=== PATIENT | female | born 1985 | race Caucasian/White ===

== ENCOUNTER 2017-10-09 06:34 | Inpatient (IN) ==
[2017-10-09] MEDS: LACTATED RINGERS 1,000 ML IV SCH (07:20)
[2017-10-09] MEDS ORDERED: MEPERIDINE 50 MG/1 ML VIAL IV PRN (07:30)
[2017-10-09] MEDS ORDERED: OXYTOCIN/LR 20 UNIT/1,000 ML BAG IV SCH (07:30)
[2017-10-09] MEDS ORDERED: BUTORPHANOL 2 MG/ML VIAL IV PRN (07:30)
[2017-10-09] MEDS: ONDANSETRON 4 MG/2 ML VIAL IV PRN ×2 (07:45→18:58)
[2017-10-09] MEDS ORDERED: hydrOXYzine HCL 25 MG/1 ML VIAL IM PRN ×2 (07:51→17:24)
[2017-10-09] MEDS ORDERED: ePHEDrine 50 MG/ML AMP IV PRN (07:51)
[2017-10-09] MEDS ORDERED: CITRIC ACID/SODIUM CITRATE 30 ML UDCUP PO ONE (07:51)
[2017-10-09] MEDS ORDERED: FAMOTIDINE 20 MG/2 ML VIAL IV ONE (07:51)
[2017-10-09] MEDS ORDERED: LACTATED RINGERS 1,000 ML IV ONE (07:51)
[2017-10-09] MEDS ORDERED: PROMETHAZINE 25 MG/1 ML VIAL IM ONE (07:51)
[2017-10-09] MEDS ORDERED: diphenhydrAMINE 50 MG/1 ML VIAL IV PRN ×3 (07:51→17:29)
[2017-10-09 08:00] LABS: Basophils % 0.3 % (0.0-0.8); Eosinophils % 0.5 % (0.00-10.9); Hemoglobin 10.6 GM/DL (12.0-16.0); Immature Granulocytes % 0.5 %; Immature Granulocytes Absolute 0.04 #; Lymphocytes # 2.8 10*3/uL (1.4-4.0); Lymphocytes % 37.1 % (21.3-54.2); Mean Corpuscular HGB Conc 32.1 GM/DL (32-36); Mean Corpuscular Hemoglobin 24 PG (27-34); Mean Platelet Volume 10.8 FL (9.6-12.0); Monocytes # 0.5 10*3/uL (0.11-0.8); Monocytes % 6.2 % (1.7-12.7); Neutrophils # 4.1 10*3/uL (1.4-7.4); Neutrophils % 55.4 % (38.7-73.9); Platelet Count 240 T/CUMM (130-400); Red Blood Count 4.46 MC/CUMM (3.8-5.5); Red Cell Distribution Width 15.9 % (9.3-17.3); White Blood Count 7.4 T/CUMM (4-12)
[2017-10-09] MEDS ORDERED: fentaNYL 2 MCG/ROPIV 0.2% EPID 150 ML EPIDURAL SCH (08:00)
[2017-10-09] MEDS ORDERED: AMPICILLIN INJ 2,000 MG in SODIUM CHLORIDE 0.9% 100 ML IV ONE (08:02)
[2017-10-09 08:40] LABS: Albumin 2.9 G/DL (3.4-5.0); Bilirubin,Total 0.4 MG/DL (0.2-1.0); Osmolality,Calculated 273.5 MOS/KG (273-304); Potassium 3.7 MMOL/L (3.5-5.1); Total Protein 7.5 G/DL (6.4-8.3)
[2017-10-09 10:52] LABS: Apearance,Urine CLEAR (Clear); Bacteria,Urine Occasional /HPF (Few); Bilirubin,Urine Negative (Negative); Blood, Urine Negative (Negative); Glucose,Urine (UA) Negative (Negative); Ketones,Urine 5 mg/dL (Negative); Mucus,Urine Occasional /LPF (Occasional); Nitrite,Urine Negative (Negative); Protein,Urine Negative; RBC,Urine <1 /HPF (0-4); Squamous Epithelial Cell,Urine Occasional /HPF (0-10); Urine Color Yellow (Yellow); Urine Specific Gravity 1.008 (1.001-1.035); WBC,Urine 3 /HPF (0-6)
[2017-10-09] MEDS ORDERED: OXYTOCIN 10 UNIT/ML VIAL ONE (11:02)
[2017-10-09] MEDS ORDERED: SODIUM CHLORIDE 0.9% 1,000 ML IV PRN (11:15)
[2017-10-09] MEDS ORDERED: METHYLENE BLUE 10 ML VIAL IV ONE (11:20)
[2017-10-09] MEDS ORDERED: SODIUM CHLORIDE 0.9% 100 ML IV ONE (11:27)
[2017-10-09] MEDS ORDERED: AMPICILLIN INJ 1,000 MG in SODIUM CHLORIDE 0.9% 100 ML IV SCH (12:00)
[2017-10-09] MEDS ORDERED: fentaNYL 100 MCG/2 ML VIAL ONE (12:34)
[2017-10-09] MEDS ORDERED: MIDAZOLAM 2 MG/2 ML VIAL ONE (12:34)
[2017-10-09] MEDS ORDERED: MORPHINE 10 MG/10 ML VIAL ONE (12:34)
[2017-10-09] MEDS ORDERED: PROMETHAZINE 25 MG/1 ML VIAL ONE ×2 (12:34→22:28)
[2017-10-09] MEDS ORDERED: LIDOCAINE MPF 2% /EPI 20 ML VIAL ONE (12:35)
[2017-10-09] MEDS ORDERED: ePHEDrine 50 MG/ML AMP ONE (12:35)
[2017-10-09] MEDS ORDERED: ONDANSETRON 4 MG/2 ML VIAL ONE (12:35)
[2017-10-09 16:46] LABS: Basophils % 0.2 % (0.0-0.8); Hematocrit 25.2 VOL% (35.7-47.0); Hemoglobin 8.3 GM/DL (12.0-16.0); Immature Granulocytes % 0.3 %; Immature Granulocytes Absolute 0.03 #; Lymphocytes # 1.6 10*3/uL (1.4-4.0); Lymphocytes % 13.6 % (21.3-54.2); Mean Corpuscular HGB Conc 32.9 GM/DL (32-36); Mean Corpuscular Hemoglobin 25 PG (27-34); Mean Corpuscular Volume 74.3 FL (87-102); Mean Platelet Volume 10.3 FL (9.6-12.0); Monocytes # 0.8 10*3/uL (0.11-0.8); Monocytes % 6.7 % (1.7-12.7); Neutrophils # 9.1 10*3/uL (1.4-7.4); Neutrophils % 79.2 % (38.7-73.9); Platelet Count 185 T/CUMM (130-400); Red Blood Count 3.39 MC/CUMM (3.8-5.5); Red Cell Distribution Width 15.8 % (9.3-17.3); White Blood Count 11.4 T/CUMM (4-12)
[2017-10-09] MEDS ORDERED: MAGNESIUM HYDROXIDE SUSP 30 ML UDCUP PO PRN (16:57)
[2017-10-09] MEDS ORDERED: OXYTOCIN/LR 20 UNIT/1,000 ML BAG IV ONE (16:57)
[2017-10-09] MEDS ORDERED: RHO(D) IMMUNE GLOBULIN 300 MCG SYRINGE IM ONE (16:57)
[2017-10-09] MEDS ORDERED: ONDANSETRON 4 MG/2 ML VIAL IV PRN ×2 (17:29→22:26)
[2017-10-09] MEDS ORDERED: HYDROmorphone 2 MG/1 ML VIAL IV PRN (17:29)
[2017-10-09] MEDS ORDERED: SODIUM CHLORIDE 0.9% 1,000 ML IV SCH (17:30)
[2017-10-09] MEDS ORDERED: LACTATED RINGERS 1,000 ML IV SCH (17:30)
[2017-10-09] MEDS: ceFAZolin 1,000 MG in SYRINGE 1 EACH IV SCH (20:56)
[2017-10-09] MEDS ORDERED: PROMETHAZINE 25 MG/1 ML VIAL IM PRN (22:26)
[2017-10-09] MEDS: DOCUSATE SODIUM 100 MG CAPSULE PO SCH (23:19)
[2017-10-10] MEDS: LACTATED RINGERS 1,000 ML IV SCH ×2 (01:40→01:41)
[2017-10-10] MEDS: ceFAZolin 1,000 MG in SYRINGE 1 EACH IV SCH (04:20)
[2017-10-10 04:21] LABS: Basophils % 0.1 % (0.0-0.8); Hematocrit 25.6 VOL% (35.7-47.0); Hemoglobin 8.3 GM/DL (12.0-16.0); Immature Granulocytes % 0.5 %; Immature Granulocytes Absolute 0.06 #; Lymphocytes # 0.8 10*3/uL (1.4-4.0); Lymphocytes % 6.7 % (21.3-54.2); Mean Corpuscular HGB Conc 32.4 GM/DL (32-36); Mean Corpuscular Hemoglobin 24 PG (27-34); Mean Platelet Volume 11.4 FL (9.6-12.0); Monocytes # 0.7 10*3/uL (0.11-0.8); Monocytes % 5.7 % (1.7-12.7); Neutrophils # 10.6 10*3/uL (1.4-7.4); Platelet Count 192 T/CUMM (130-400); Red Blood Count 3.46 MC/CUMM (3.8-5.5); Red Cell Distribution Width 15.9 % (9.3-17.3); White Blood Count 12.1 T/CUMM (4-12)
[2017-10-10] MEDS: IBUPROFEN 800 MG TABLET PO SCH ×3 (06:33→22:12)
[2017-10-10] MEDS: DOCUSATE SODIUM 100 MG CAPSULE PO SCH ×2 (09:50→22:11)
[2017-10-10] MEDS: SIMETHICONE CHEW 80 MG TABLET PO PRN ×2 (09:50→21:20)
[2017-10-10] MEDS: MULTIVITAMIN (PRENATAL) TABLET PO SCH (09:50)
[2017-10-10] MEDS ORDERED: guaiFENesin 200 MG/10 ML UDCUP PO PRN (22:13)
[2017-10-11] MEDS: IBUPROFEN 800 MG TABLET PO SCH (06:30)
[2017-10-11 07:26] VITALS: BP 80/49
[2017-10-11] MEDS: DOCUSATE SODIUM 100 MG CAPSULE PO SCH (10:55)
[2017-10-11] MEDS: MULTIVITAMIN (PRENATAL) TABLET PO SCH (10:56)
== END 2017-10-11 13:05 | disposition home or self-care (01) | DRG 540 ==
LOC: N.LDOUT 06:34 → N.LD 06:38 → N.OB 16:56
PROVIDERS: ADMIT Obstetrics & Gynecology; ATTEND Obstetrics & Gynecology
PROC: LDCSECT (ICD-10-PCS; 2017-10-09 11:00)

== ENCOUNTER 2021-07-03 04:17 | Inpatient (IN) ==
[2021-07-03] MEDS ORDERED: CITRIC ACID/SODIUM CITRATE 30 ML UDCUP PO ONE (05:13)
[2021-07-03] MEDS ORDERED: FAMOTIDINE 20 MG/2 ML VIAL IV ONE (05:13)
[2021-07-03] MEDS ORDERED: ceFAZolin 3,000 MG in SYRINGE 1 EACH IV ONE (05:13)
[2021-07-03] MEDS ORDERED: OXYTOCIN/LR 20 UNIT/1,000 ML BAG IV ONE ×2 (05:15→08:10)
[2021-07-03] MEDS ORDERED: miSOPROStoL 200 MCG TABLET ONE (05:35)
[2021-07-03] MEDS ORDERED: BUPIVACAINE SPINAL 0.75% 2 ML AMP SPINAL ONE (05:35)
[2021-07-03] MEDS ORDERED: ONDANSETRON 4 MG/2 ML VIAL ONE ×2 (05:35→08:01)
[2021-07-03] MEDS ORDERED: METHYLERGONOVINE 0.2 MG/1 ML AMP ONE (05:36)
[2021-07-03] MEDS ORDERED: CARBOPROST TROMETHAMINE 250 MCG/ML AMP IM ONE (05:36)
[2021-07-03] MEDS: LACTATED RINGERS 1,000 ML IV SCH ×3 (05:37→20:00)
[2021-07-03] MEDS ORDERED: SODIUM CHLORIDE 0.9% 0 ML IV ONE (05:37)
[2021-07-03] MEDS ORDERED: TRANEXAMIC ACID 1,000 MG/10 ML VIAL ONE (05:37)
[2021-07-03] MEDS ORDERED: TISSUE ADHESIVE 1 EACH APPLICATOR TOP ONE (05:40)
[2021-07-03 05:52] LABS: Basophils % 0.3 % (0.0-0.8); Eosinophils % 0.4 % (0.00-10.9); Hematocrit 35.8 VOL% (35.7-47.0); Hemoglobin 11.5 GM/DL (12.0-16.0); Immature Granulocytes % 0.5 %; Immature Granulocytes Absolute 0.05 #; Lymphocytes # 2.2 10*3/uL (1.4-4.0); Lymphocytes % 22.9 % (21.3-54.2); Mean Corpuscular HGB Conc 32.1 GM/DL (32-36); Mean Corpuscular Volume 85.9 FL (87-102); Monocytes % 6.9 % (1.7-12.7); Platelet Count 154 T/CUMM (130-400); Red Blood Count 4.17 MC/CUMM (3.8-5.5); Red Cell Distribution Width 14.2 % (9.3-17.3); White Blood Count 9.5 T/CUMM (4-12)
[2021-07-03] MEDS ORDERED: KETOROLAC 30 MG/1 ML VIAL ONE (06:04)
[2021-07-03] MEDS ORDERED: DEXAMETHASONE 4 MG/1 ML VIAL ONE (06:04)
[2021-07-03] MEDS ORDERED: ACETAMINOPHEN INJ 1,000 MG/100 ML VIAL IV ONE (06:04)
[2021-07-03 06:25] LABS: Albumin 2.7 G/DL (3.4-5.0); Bilirubin,Total 0.4 MG/DL (0.20-1.00); Calcium 8.9 MG/DL (8.5-10.1); Osmolality,Calculated 272.5 MOS/KG (273-304); Potassium 3.3 MMOL/L (3.5-5.1)
[2021-07-03] MEDS ORDERED: PHENYLEPHRINE 1 MG/10 ML SYRINGE IV ONE ×2 (06:43→07:25)
[2021-07-03 07:32] LABS: Cord Venous Blood HCO3 21.2 MMOL/L; Cord Venous Blood PCO2 47.1 MMHG; Cord Venous Blood PO2 < 17
[2021-07-03 07:35] LABS: Cord Arterial Blood HCO3 20.2 MMOL/L
[2021-07-03 07:40] LABS: Bacteria,Urine Occasional /HPF (Few); Bilirubin,Urine Negative (Negative); Blood, Urine Negative (Negative); Glucose,Urine (UA) Negative (Negative); Hyaline Casts,Urine 1 /LPF (0-3); Ketones,Urine 80 mg/dL (Negative); Mucus,Urine Occasional /LPF (Occasional); Nitrite,Urine Negative (Negative); Protein,Urine Negative; RBC,Urine <1 /HPF (0-4); Squamous Epithelial Cell,Urine Occasional /HPF (0-10); Urine Appearance CLEAR (Clear); Urine Color Yellow (Yellow); Urine Specific Gravity 1.014 (1.001-1.035); Urine Urobilinogen < 2.0 EU/DL (0.2-1.0)
[2021-07-03] MEDS ORDERED: RHO(D) IMMUNE GLOBULIN 300 MCG SYRINGE IM ONE (08:10)
[2021-07-03] MEDS ORDERED: ONDANSETRON 4 MG/2 ML VIAL IV PRN (08:10)
[2021-07-03] MEDS ORDERED: ACETAMINOPHEN 325 MG TABLET PO PRN (08:10)
[2021-07-03] MEDS ORDERED: SIMETHICONE CHEW 80 MG TABLET PO PRN (08:10)
[2021-07-03] MEDS ORDERED: LACTATED RINGERS 1,000 ML IV SCH (08:30)
[2021-07-03] MEDS: MULTIVITAMIN (PRENATAL) TABLET PO SCH (10:48)
[2021-07-03] MEDS: DOCUSATE SODIUM 100 MG CAPSULE PO SCH ×2 (10:48→21:06)
[2021-07-03] MEDS ORDERED: PROMETHAZINE 25 MG/1 ML VIAL IM PRN (13:32)
[2021-07-03] MEDS: ACETAMINOPHEN 500 MG TABLET PO SCH ×2 (13:52→19:54)
[2021-07-03] MEDS: KETOROLAC 30 MG/1 ML VIAL IV SCH ×2 (13:52→19:55)
[2021-07-03] MEDS ORDERED: SCOPOLAMINE 1.5 MG PATCH TRANSDERM SCH (14:00)
[2021-07-03] MEDS: ceFAZolin 2,000 MG in SODIUM CHLORIDE 0.9% 100 ML IV SCH ×2 (14:06→22:42)
[2021-07-03 15:13] LABS: Basophils % 0.1 % (0.0-0.8); Hematocrit 29.8 VOL% (35.7-47.0); Hemoglobin 9.8 GM/DL (12.0-16.0); Immature Granulocytes % 0.5 %; Immature Granulocytes Absolute 0.06 #; Lymphocytes # 1.1 10*3/uL (1.4-4.0); Mean Corpuscular HGB Conc 32.9 GM/DL (32-36); Mean Corpuscular Volume 86.4 FL (87-102); Mean Platelet Volume 10.5 FL (9.6-12.0); Neutrophils % 84.4 % (38.7-73.9); Platelet Count 145 T/CUMM (130-400); Red Blood Count 3.45 MC/CUMM (3.8-5.5); Red Cell Distribution Width 14.4 % (9.3-17.3)
[2021-07-03] MEDS ORDERED: diphenhydrAMINE CAP 25 MG CAPSULE PO PRN (19:56)
[2021-07-04] MEDS: ACETAMINOPHEN 500 MG TABLET PO SCH (02:06)
[2021-07-04] MEDS: KETOROLAC 30 MG/1 ML VIAL IV SCH (02:06)
[2021-07-04] MEDS: ENOXAPARIN 30 MG/0.3 ML SYRINGE SUBCUT SCH (02:06)
[2021-07-04] MEDS ORDERED: BENZOCAINE/MENTHOL LOZENGE 18/BOX PO PRN (02:11)
[2021-07-04 05:14] LABS: Basophils % 0.2 % (0.0-0.8); Eosinophils % 0.3 % (0.00-10.9); Hematocrit 28.9 VOL% (35.7-47.0); Hemoglobin 9.2 GM/DL (12.0-16.0); Immature Granulocytes % 0.5 %; Immature Granulocytes Absolute 0.05 #; Lymphocytes # 2.4 10*3/uL (1.4-4.0); Lymphocytes % 25.4 % (21.3-54.2); Mean Corpuscular HGB Conc 31.8 GM/DL (32-36); Mean Platelet Volume 10.2 FL (9.6-12.0); Monocytes % 7.6 % (1.7-12.7); Platelet Count 148 T/CUMM (130-400); Red Blood Count 3.32 MC/CUMM (3.8-5.5); Red Cell Distribution Width 14.4 % (9.3-17.3); White Blood Count 9.4 T/CUMM (4-12)
[2021-07-04 05:34] LABS: Hypochromasia 1+; Microcytosis 1+; Platelet Estimate Adequate
[2021-07-04] MEDS: MULTIVITAMIN (PRENATAL) TABLET PO SCH (08:49)
[2021-07-04] MEDS: IRON (CARBONYL)/VIT C/B12/FA TABLET PO SCH (08:49)
[2021-07-04] MEDS: DOCUSATE SODIUM 100 MG CAPSULE PO SCH ×2 (08:49→21:38)
[2021-07-04] MEDS: IBUPROFEN 800 MG TABLET PO PRN ×2 (13:25→21:38)
[2021-07-04] MEDS: MAGNESIUM HYDROXIDE SUSP 30 ML UDCUP PO PRN (13:25)
[2021-07-04 19:10] LABS: Basophils # 0.1 10*3/uL (0.0-0.2); Basophils % 0.5 % (0.0-0.8); Eosinophils # 0.1 10*3/uL (0.0-0.87); Eosinophils % 0.8 % (0.00-10.9); Hematocrit 29.9 VOL% (35.7-47.0); Hemoglobin 9.6 GM/DL (12.0-16.0); Immature Granulocytes % 0.5 %; Immature Granulocytes Absolute 0.05 #; Lymphocytes # 2.9 10*3/uL (1.4-4.0); Lymphocytes % 30.6 % (21.3-54.2); Mean Corpuscular HGB Conc 32.1 GM/DL (32-36); Mean Corpuscular Volume 88.7 FL (87-102); Mean Platelet Volume 10.5 FL (9.6-12.0); Monocytes % 7.1 % (1.7-12.7); Neutrophils % 60.5 % (38.7-73.9); Platelet Count 166 T/CUMM (130-400); Red Blood Count 3.37 MC/CUMM (3.8-5.5); Red Cell Distribution Width 14.6 % (9.3-17.3); White Blood Count 9.5 T/CUMM (4-12)
[2021-07-04 19:14] LABS: Barbiturates Screen,Urine Negative (Negative); Benzodiazepines Screen,Urine Negative (Negative); Cannabinoid Screen,Urine Negative (Negative); Opiate Screen,Urine Negative (Negative); Phencyclidine Screen,Urine Negative (Negative)
[2021-07-04] MEDS: POTASSIUM CHLORIDE 20 MEQ TABLET PO PRN (21:39)
[2021-07-05] MEDS: POTASSIUM CHLORIDE 20 MEQ TABLET PO PRN ×2 (00:30→02:15)
[2021-07-05] MEDS: ENOXAPARIN 30 MG/0.3 ML SYRINGE SUBCUT SCH (02:15)
[2021-07-05 08:39] VITALS: BP 101/63
[2021-07-05] MEDS: DOCUSATE SODIUM 100 MG CAPSULE PO SCH (08:52)
[2021-07-05] MEDS: MAGNESIUM HYDROXIDE SUSP 30 ML UDCUP PO PRN (08:52)
[2021-07-05] MEDS: MULTIVITAMIN (PRENATAL) TABLET PO SCH (08:52)
[2021-07-05] MEDS: IRON (CARBONYL)/VIT C/B12/FA TABLET PO SCH (08:52)
[2021-07-06] MEDS ORDERED: SCOPOLAMINE 1.5 MG PATCH TRANSDERM SCH (09:00)
== END 2021-07-05 12:55 | disposition home or self-care (01) | DRG 540 ==
LOC: N.LDOUT 04:17 → N.LD 04:20 → N.OB 11:50
PROVIDERS: ADMIT Student in an Organized Health Care Education/Training Program; ATTEND Student in an Organized Health Care Education/Training Program
PROC: LDCSECT (ICD-10-PCS; 2021-07-03 05:45)